=== PATIENT | male | born 1975 | race Caucasian/White ===

== ENCOUNTER 2022-09-01 04:35 | Inpatient (IN) ==
[2022-09-01] MEDS ORDERED: SODIUM CHLORIDE 0.9% 1000ML 1,000 ML IV ONE (05:06)
[2022-09-01] MEDS ORDERED: HYDROmorphone INJ 1 MG/ML SYRINGE IV STA (05:06)
[2022-09-01] MEDS ORDERED: ONDANSETRON INJ 2 MG/ML 2 ML VIAL IV STA (05:06)
[2022-09-01 05:15] LABS: Basophils # (auto) 0.03 K/uL (0-0.2); Basophils % (auto) 0.3 %; Eosinophils % (auto) 4.4 %; Hematocrit (blood only) 45.7 % (42.0-52.0); Hemoglobin 16.8 g/dl (14.0-18.0); Immature Granulocytes # (auto) 0.11 K/uL (0.01-0.20); Lymphocytes # (auto) 1.29 K/uL (1.2-3.4); Lymphocytes % (auto) 11.4 %; Mean Corpuscular Hemoglobin 31.9 pg (25.0-34.0); Mean Corpuscular Hgb Conc 36.8 g/dL (32.0-36.0); Mean Corpuscular Volume 86.7 fL (80.0-100.0); Mean Platelet Volume 11.7 fL (9.4-12.4); Monocytes # (auto) 0.56 K/uL (0.11-0.59); Monocytes % (auto) 4.9 %; Neutrophils # (auto) 8.83 K/uL (1.40-6.50); Platelet Count 205 K/uL (130-400); RDW Coefficient of Variation 11.6 % (11.5-14.5); RDW Standard Deviation 36.8 fL (36.4-46.3); Red Blood Count 5.27 M/uL (4.70-6.10); White Blood Count 11.32 K/ul (4.8-10.8)
--- NOTE | 2022-09-01 05:27 | Emergency Department Note ---
Impression & Plan Partial small bowel obstruction Admit to the [facility] ED Provider Note NAME: DALE MENA AGE: 47 SEX: M ARRIVES VIA: Walk-In INFORMANT: Patient and his ED PROVIDER(S): Nicolle Clark DO CHIEF COMPLAINT: Midline abdominal pain PLAN: Disposition: Admit to the [facility] Condition: Fair MEDICAL DECISION MAKING: This is a 47-year-old male patient presents to the emergency department with abdominal pain nausea, vomiting and diarrhea. The patient has been seen at [facility] twice over the past 2 weeks for similar symptoms. However tonight, the pain was severe. At 1 AM his symptoms worsened and he noted he was burping up a foul smelling substance. Laboratory studies revealed a mild elevation to his white blood cell count. He had a stable H&H. BSG was 132. Patient was given IV antiemetics and IV analgesia. He was started on a normal saline drip and kept NPO. He went for CT scan of the abdomen/pelvis which revealed gastric air-fluid levels along with air-fluid levels in the small bowel consistent with a partial small bowel obstruction. Patient has a virgin abdomen with no previous intra-abdominal surgeries. NG tube was placed. I discussed the case with the [facility] and they will evaluate for further management. Triage Nursing notes reviewed and agree with them. Additional history obtained from the patient's is at the bedside Vital Signs: reviewed and remarkable for hypertension Differential diagnosis: Colitis, cholecystitis, small bowel obstruction, volvulus, pancreatitis ER treatment provided: Cardiac monitoring Twelve-lead EKG IV normal saline bolus IV Zofran IV Dilaudid NG tube placement Diagnostics interpreted by me: ECG: Normal sinus rhythm at a rate of [address] segment elevation or signs of ischemia. Cardiac Monitoring: Normal sinus rhythm at a rate of 89 Laboratory studies: See below Imaging studies: As per stat rad CT scan of the abdomen/pelvis: See report HPI: 47/M arrives for evaluation of diffuse abdominal pain, nausea, vomiting and diarrhea. Patient has been having intermittent episodes of nausea, vomiting diarrhea and abdominal pain. At 1 AM, the patient woke up with more severe pain. He did eat a double cheeseburger earlier today and some chili this evening. He had pancakes this for breakfast PAST MEDICAL HISTORY:Hypertension PAST SURGICAL HISTORY:Knee surgery FAMILY HISTORY:See Below SOCIAL HISTORY:The patient is employed; he lives with his and son. HOME MEDICATIONS:See list ALLERGIES:Amoxicillin VITALS:See Below PHYSICAL EXAMINATION: HEENT: Head - normocephalic and atraumatic. Pupils are equal, round, and react melody to light. Extraocular eye muscles are intact and sclera are anicteric. Ears - bilaterally patent canals with noninjected tympanic membranes and no evidence of hemotympanum. Nose - moist nasal mucosa without discharge. Mouth - moist buccal mucosa. Oropharynx is nonerythematous and there is no tonsillar exudate or edema noted. Neck: Supple; no cervical lymphadenopathy Heart: Regular rate and rhythm. There is a normal S1 and S2 with no murmurs, clicks, or gallops appreciated. Lungs: Clear to auscultation bilaterally with no wheezes, rales, or rhonchi. Abdomen: Soft, diffusely tender in the midline, nondistended, with good bowel sounds. There are no palpable pulsatile masses or hepatosplenomegaly. There is no guarding, rigidity, or rebound noted. Extremities: No evidence of cyanosis, clubbing, or edema. There are easily palpable peripheral pulses. Neuro:The patient is awake and alert, oriented to day, time, and place. Muscle strength is 5/5 in all 4 extremities. 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 There are no cerebellar signs. ED COURSE: Times/Reassessments: 445: The patient was evaluated in room C10. A complete history and physical was performed. An IV lock was initiated and labs were drawn as above. An order was placed for continuous cardiac monitoring. The patient was in a normal sinus rhythm at a rate of 89. A twelve-lead EKG was obtained as described above. The patient was bolused with IV normal saline solution. He was given a dose of IV Dilaudid and IV Zofran. The patient went for CT scan of the abdomen/pelvis. Upon return from radiology, the patient was able to give a urine specimen. He had a nasogastric tube placed. Nicolle Clark DO Past Med/Surg History Social History Smoking Status: Never smoker Preferred Language: Niuean Feels Safe at Home: Yes Results & Data (ED) Vital Signs Vital Signs - 24 hr 09/01/22 04:37 09/01/22 05:26 09/01/22 06:28 Temperature 36.3 C L Temperature Source Temporal Artery Scan Pulse Rate 89 78 74 Pulse Rhythm Regular Respiratory Rate 18 78 H Respiratory Effort / Characteristics Non-Labored Spontaneous Respiratory Depth Normal Respiratory Pattern Regular Blood Pressure 188/125 H Blood Pressure Mean 146 Blood Pressure Position Sitting Pulse Oximetry 96 98 Oxygen Delivery Method Room Air Room Air Sepsis Recent Fever Within 48 Hours No Sepsis New/Unexplained Change in Mental Status No Sepsis Action Taken by Nursing No Action Required Laboratory Data 09/01/22 04:50 09/01/22 04:50 Lab Results 09/01/22 09/01/22 09/01/22 Range/Units 04:50 04:50 06:23 WBC 11.32 H (4.8-10.8) K/ul RBC 5.27 (4.70-6.10) M/uL Hgb 16.8 (14.0-18.0) g/dl Hct 45.7 (42.0-52.0) % MCV 86.7 (80.0-100.0) fL MCH 31.9 (25.0-34.0) pg MCHC 36.8 H (32.0-36.0) g/dL RDW Std Deviation 36.8 (36.4-46.3) fL RDW Coeff of Bal 11.6 (11.5-14.5) % Plt Count 205 (130-400) K/uL MPV 11.7 (9.4-12.4) fL Immature Gran % (Auto) 1.0 % Neut % (Auto) 78.0 % Lymph % (Auto) 11.4 % Darke % (Auto) 4.9 % Eos % (Auto) 4.4 % Baso % (Auto) 0.3 % Neut # (Auto) 8.83 H (1.40-6.50) K/uL Lymph # (Auto) 1.29 (1.2-3.4) K/uL Darke # (Auto) 0.56 (0.11-0.59) K/uL Eos # (Auto) 0.50 (0-0.50) K/uL Baso # (Auto) 0.03 (0-0.2) K/uL Immature Gran # (Auto) 0.11 (0.01-0.20) K/uL Sodium 139 (136-145) mmol/L Potassium 3.8 (3.5-5.1) mmol/L Chloride 106 (98-107) mmol/L Carbon Dioxide 24 (21-32) mmol/L Anion Gap 9 (3-11) BUN 17 (6-23) mg/dl Creatinine 1.11 (0.6-1.4) mg/dl Est Cr Clr Drug Dosing 110.1 ml/min Est GFR ( Amer) 90.5 ml/min Est GFR (Non-Af Amer) 78.1 ml/min BUN/Creatinine Ratio 15.3 (10-20) Glucose 132 H (70-99(Fasting)) mg/dl Calcium 8.7 (8.5-10.1) mg/dl Total Bilirubin 0.9 (0.2-1.0) mg/dl AST 23 (13-39) U/L ALT 30 (7-52) U/L Alkaline Phosphatase 56 (34-104) U/L Total Protein 7.1 (6.0-8.3) gm/dl Albumin 4.5 (3.4-5.0) gm/dl Globulin 2.6 (2.5-4.0) gm/dl Albumin/Globulin Ratio 1.7 (0.9-2) Lipase 33 (11-82) U/L Urine Color Yellow Urine Appearance Clear (Clear) Urine pH 6.5 (4.5-7.5) Ur Specific [place] > 1.045 H (1.000-1.030) Urine Protein Negative (Negative) Urine Glucose (UA) Negative (Negative) Urine Ketones Negative (Negative) Urine Blood Negative (Negative) Urine Nitrite Negative (Negative) Urine Bilirubin Negative (Negative) Urine Urobilinogen Negative (Negative) Ur Leukocyte Esterase Negative (Negative) SARS-CoV-2, RNA, NAAT (NEGATIVE) 09/01/22 Range/Units 06:36 WBC (4.8-10.8) K/ul RBC (4.70-6.10) M/uL Hgb (14.0-18.0) g/dl Hct (42.0-52.0) % MCV (80.0-100.0) fL MCH (25.0-34.0) pg MCHC (32.0-36.0) g/dL RDW Std Deviation (36.4-46.3) fL RDW Coeff of Bal (11.5-14.5) % Plt Count (130-400) K/uL MPV (9.4-12.4) fL Immature Gran % (Auto) % Neut % (Auto) % Lymph % (Auto) % Darke % (Auto) % Eos % (Auto) % Baso % (Auto) % Neut # (Auto) (1.40-6.50) K/uL Lymph # (Auto) (1.2-3.4) K/uL Darke # (Auto) (0.11-0.59) K/uL Eos # (Auto) (0-0.50) K/uL Baso # (Auto) (0-0.2) K/uL Immature Gran # (Auto) (0.01-0.20) K/uL Sodium (136-145) mmol/L Potassium (3.5-5.1) mmol/L Chloride (98-107) mmol/L Carbon Dioxide (21-32) mmol/L Anion Gap (3-11) BUN (6-23) mg/dl Creatinine (0.6-1.4) mg/dl Est Cr Clr Drug Dosing ml/min Est GFR ( Amer) ml/min Est GFR (Non-Af Amer) ml/min BUN/Creatinine Ratio (10-20) Glucose (70-99(Fasting)) mg/dl Calcium (8.5-10.1) mg/dl Total Bilirubin (0.2-1.0) mg/dl AST (13-39) U/L ALT (7-52) U/L Alkaline Phosphatase (34-104) U/L Total Protein (6.0-8.3) gm/dl Albumin (3.4-5.0) gm/dl Globulin (2.5-4.0) gm/dl Albumin/Globulin Ratio (0.9-2) Lipase (11-82) U/L Urine Color Urine Appearance (Clear) Urine pH (4.5-7.5) Ur Specific [place] (1.000-1.030) Urine Protein (Negative) Urine Glucose (UA) (Negative) Urine Ketones (Negative) Urine Blood (Negative) Urine Nitrite (Negative) Urine Bilirubin (Negative) Urine Urobilinogen (Negative) Ur Leukocyte Esterase (Negative) SARS-CoV-2, RNA, NAAT NEGATIVE (NEGATIVE) Administered Medications Discontinued Medications Hydromorphone HCl (Hydromorphone Inj 1 Mg/Ml Syringe) 1 mg IV NOW STA Stop: 09/01/22 05:07 Last Admin: 09/01/22 05:14 Dose: 1 mg Documented By: JENNY Sodium Chloride (Nss 1000ml) 1,000 mls @ 999 mls/hr IV .Q1H1M ONE Stop: 09/01/22 06:06 Last Admin: 09/01/22 05:14 Dose: 999 mls/hr Documented By: JENNY Ioversol (Optiray 350 100ml) 100 ml IV ONCE ONE Stop: 09/01/22 05:33 Last Admin: 09/01/22 05:32 Dose: 85 ml Documented By: TINY Ondansetron HCl (Ondansetron Inj 2 Mg/Ml 2 Ml Vial) 4 mg IV NOW STA Stop: 09/01/22 05:07 Last Admin: 09/01/22 05:14 Dose: 4 mg Documented By: JENNY Imaging Data Radiologist's Impression: Abdomen/Pelvis CT 09/01/22 05:06 Exam(s): CT ABDOMEN + PELVIS With Contrast IV Amt: 85 ML OPTIRAY 350 EXAM: CT Abdomen and Pelvis With Intravenous Contrast CLINICAL HISTORY: Reason for exam: severe periumbilical pain. TECHNIQUE: Axial computed tomography images of the abdomen and pelvis with intravenous contrast. CTDI is 27.08 mGy and DLP is 1641.32 mGy-cm. Automated exposure control was utilized for the study. A dose lowering technique was utilized adhering to the principles of ALARA. CONTRAST: Patient received 85 ML OPTIRAY 350 of IV contrast COMPARISON: No relevant prior studies available. FINDINGS: Lung bases: Unremarkable. No mass. No consolidation. ABDOMEN: Liver: Hepatic steatosis. Gallbladder and bile ducts: Unremarkable. No calcified stones. No ductal dilation. Pancreas: Unremarkable. No mass. No ductal dilation. Spleen: Unremarkable. No splenomegaly. Adrenals: Unremarkable. No mass. Kidneys and ureters: Unremarkable. No solid mass. No hydronephrosis. Stomach and bowel: Mildly prominent fluid-filled small bowel loops. These generally measure less than 3 cm in diameter. There is no clear one transition point. No obstruction. No mucosal thickening. PELVIS: Appendix: No findings to suggest acute appendicitis. Bladder: Unremarkable. No mass. Reproductive: Unremarkable as visualized. ABDOMEN and PELVIS: Intraperitoneal space: Unremarkable. No free air. No significant fluid collection. Bones/joints: No acute fracture. No dislocation. Soft tissues: Unremarkable. Vasculature: Unremarkable. No abdominal aortic aneurysm. Lymph nodes: Unremarkable. No enlarged lymph nodes. IMPRESSION: Mildly prominent fluid-filled small bowel loops. These generally measure less than 3 cm in diameter. There is no clear one transition point. This may represent early or partial small bowel obstruction. The appendix is normal. Hepatic steatosis. Electronically signed by: Mk Dalal MD 09/01/22 06:04 AM KUB X-Ray 09/01/22 06:42 KUB CLINICAL HISTORY: Enteric tube placement. FINDINGS: 2 AP, portable, upright views of the lower chest and upper abdomen are correlated with abdominal CT performed the same day 09/01/2022. An enteric tube has been placed. This projects below diaphragm over the distal stomach. The tip is not visualized. The visualized loops of bowel in the upper abdomen are normal in caliber. No evidence of intraperitoneal free air is seen below the diaphragm. The heart is enlarged. Atelectasis is noted at the lung bases. The visualized skeletal structures appear intact. IMPRESSION: An enteric tube has been placed as above. Electronically signed by: Nadir Calvin M.D. 09/01/2022 7:11 AM Discharge Plan Visit Data Chief Complaint: Abdominal Pain Stated Complaint: SEVERE ABDOMINAL PAIN,DRY HEAVES ED Provider: Nicolle Clark Discharge Problem: Partial small bowel obstruction Forms Stand Alone Forms: My [facility] Referrals Referrals: PCP,NO [Physician] -
[2022-09-01] MEDS ORDERED: OPTIRAY 350 100ml IV ONE (05:32)
[2022-09-01 05:33] LABS: Albumin Level 4.5 gm/dl (3.4-5.0); Bilirubin,Total 0.9 mg/dl (0.2-1.0); Calcium 8.7 mg/dl (8.5-10.1); Potassium 3.8 mmol/L (3.5-5.1)
[2022-09-01 05:40] LABS: Albumin Globulin Ratio 1.7 (0.9-2); BUN Creatinine Ratio 15.3 (10-20); Creatinine Clr Calc Pharmacy 110.1 ml/min; Est GFR (African American) 90.5 ml/min; Est GFR (Non-African American) 78.1 ml/min; Globulin 2.6 gm/dl (2.5-4.0); Total Protein 7.1 gm/dl (6.0-8.3)
--- NOTE | 2022-09-01 06:05 | CT Scan Report ---
Exam(s): CT ABDOMEN + PELVIS With Contrast IV Amt: 85 ML OPTIRAY 350 EXAM: CT Abdomen and Pelvis With Intravenous Contrast CLINICAL HISTORY: Reason for exam: severe periumbilical pain. TECHNIQUE: Axial computed tomography images of the abdomen and pelvis with intravenous contrast. CTDI is 27.08 mGy and DLP is 1641.32 mGy-cm. Automated exposure control was utilized for the study. A dose lowering technique was utilized adhering to the principles of ALARA. CONTRAST: Patient received 85 ML OPTIRAY 350 of IV contrast COMPARISON: No relevant prior studies available. FINDINGS: Lung bases: Unremarkable. No mass. No consolidation. ABDOMEN: Liver: Hepatic steatosis. Gallbladder and bile ducts: Unremarkable. No calcified stones. No ductal dilation. Pancreas: Unremarkable. No mass. No ductal dilation. Spleen: Unremarkable. No splenomegaly. Adrenals: Unremarkable. No mass. Kidneys and ureters: Unremarkable. No solid mass. No hydronephrosis. Stomach and bowel: Mildly prominent fluid-filled small bowel loops. These generally measure less than 3 cm in diameter. There is no clear one transition point. No obstruction. No mucosal thickening. PELVIS: Appendix: No findings to suggest acute appendicitis. Bladder: Unremarkable. No mass. Reproductive: Unremarkable as visualized. ABDOMEN and PELVIS: Intraperitoneal space: Unremarkable. No free air. No significant fluid collection. Bones/joints: No acute fracture. No dislocation. Soft tissues: Unremarkable. Vasculature: Unremarkable. No abdominal aortic aneurysm. Lymph nodes: Unremarkable. No enlarged lymph nodes. IMPRESSION: Mildly prominent fluid-filled small bowel loops. These generally measure less than 3 cm in diameter. There is no clear one transition point. This may represent early or partial small bowel obstruction. The appendix is normal. Hepatic steatosis. Electronically signed by: Mk Dalal MD 09/01/22 06:04 AM
[2022-09-01] MEDS ORDERED: BENZOCAINE/TETRACAIN/BUTAM 50 APPLN/5 GM CAN EXT STA (06:39)
[2022-09-01] MEDS ORDERED: BENZOCAINE/TETRACAIN/BUTAM 50 APPLN/5 GM CAN EXT ONE (06:44)
[2022-09-01 06:54] LABS: Appearance Urine Clear (Clear); Bilirubin Urine Negative (Negative); Blood Urine Negative (Negative); Color Urine Yellow; Glucose Urine UA Negative (Negative); Ketones Urine Negative (Negative); Leukocyte Esterase Urine Negative (Negative); Nitrite Urine Negative (Negative); Protein Urine Negative (Negative); Specific Gravity Urine > 1.045 (1.000-1.030); Urobilinogen Urine Negative (Negative); pH Urine 6.5 (4.5-7.5)
--- NOTE | 2022-09-01 07:14 | XRay Report ---
KUB CLINICAL HISTORY: Enteric tube placement. FINDINGS: 2 AP, portable, upright views of the lower chest and upper abdomen are correlated with abdo juliette CT performed the same day 09/01/2022. An enteric tube has been placed. This projects below diaph ragm over the distal stomach. The tip is not visualized. The visualized loops of bowel in the upper a bdomen are normal in caliber. No evidence of intraperitoneal free air is seen below the diaphragm. Th e heart is enlarged. Atelectasis is noted at the lung bases. The visualized skeletal structures appea r intact. IMPRESSION: An enteric tube has been placed as above. Electronically signed by: Nadir Calvin M.D. 09/01/2022 7:11 AM
[2022-09-01] MEDS: SODIUM CHLORIDE 0.9% 500 ML IV SCH ×2 (07:30→10:36)
--- NOTE | 2022-09-01 09:19 | History & Physical Report ---
Date of Service September 01, 2022 Assessment & Plan (1) Partial small bowel obstruction: Plan: 47 y/o male with a PMH of hypertension who presents with two weeks of episodic abdominal pain, most recent episode with associated dry heaves and diarrhea. Imaging in the ED today concerning for partial SBO but no transition point. No prior bowel obstructions, no prior abdominal surgery - Admit to med telemetry due to elevated BP - Consult surgery for additional recommendations - Continue NGT for now, NPO status - Check lactate - Labs in AM - Stool studies for infection - Morphine for pain control, ondansetron for nausea - Add IV Pepcid (2) Essential hypertension: Plan: Unable to take oral BP meds at present and BP markedly elevated in ED/on floor - IV hydralazine ordered prn - Will resume home meds once able to take po Plan Pt seen and reviewed with attending physician, Dr. Robles. Plan of care discussed and as outlined above. Code Status: Full Code DVT Prophylaxis: Timmy Najera PA-C Admission and Anticipated Discharge Date Admission Date: September 01, 2022 History of Present Illness Chief Complaint: abdominal pain, nausea Primary Care Provider: Alla Barron DO This is a 47 y/o male with a PMH of HTN and BPPV who presented to the ED overnight with recurrent abdominal pain and vomiting. Symptoms started 08/18/22 with abdominal pain - evaluated in the ED in [place] on 08/20/[address] negative so sent home. He did well for a few days without symptoms but then developed recurrent pain and was seen in the ED in [place] again on 08/28/22 (pain but no vomiting or diarrhea), CT again negative so sent home. Last night, he developed severe pain with associated dry heaves and nausea as well as diar naseem, which were new from prior episodes of symptoms. He denies overt hematochezia although stools were reddish in color so he is unsure if bloody. He came to [facility] for eval overnight - imaging here showed possible partial SBO so referred for admission. NGT placed in ED for decompression - pt reports improvement in pain after NGT placed. Main complaint at present is sore throat related to the tube. Prior to 08/18, pt denies any similar symptoms. No recent change in bowel habits, appetite, or weight loss. He denies prior abdominal surgeries, no prior SBO. He denies fevers, chills, chest pain, palpitations, SOB, SONI, Dizziness. He has a history of BP - on metoprolol and losartan but has not taken since yesterday. Allergies Allergy/AdvReac Type Severity Reaction Status Date / Time amoxicillin Allergy Rash Verified 09/01/22 09:13 Penicillins Allergy hives Verified 09/01/22 09:13 Home Medications Medication Instructions Recorded Confirmed Type losartan 100 mg tablet 100 mg PO DAILY 09/01/22 09/01/22 History metoprolol tartrate 25 mg tablet 25 mg PO BID 09/01/22 09/01/22 History Past Med/Surg History Medical History BPPV (benign paroxysmal positional vertigo) Essential hypertension Surgical History History of arthroscopy of left knee Family History Grandfather (Maternal) Heart disease Grandmother (Maternal) Heart disease Father Hypertension Social History Smoking Status: Never smoker Hx Alcohol Use: No Hx Substance Use: No Preferred Language: Portuguese Communication Ability: Effective Natural Fabricator Required: No Beliefs That Will Affect Care: None Current Living Situation: Spouse Feels Safe at Home: Yes Assistive Devices: Glasses Review of Systems Review of Systems: All systems reviewed & are unremarkable except as noted in HPI & below Constitutional: + anorexia; no fever and no chills Eyes: no diplopia Ear, Nose, Mouth, Throat: + sore throat Respiratory: no cough and no dyspnea Cardiovascular: no chest pain, no palpitations, no syncope and no edema Gastrointestinal: as per Subjective / HPI Genitourinary: no dysuria or no hematuria Musculoskeletal: no back pain and no neck pain Integumentary: no rash and no yellowing of the skin Neurologic: no dizziness and no headache(s) Physical Exam Constitutional: well developed and well nourished; no acute distress Eyes: + anicteric sclerae ENMT: NGT in place with reddish drainage Neck: trachea midline Respiratory: no respiratory distress and no labored breathing Auscultation: lungs clear to auscultation bilaterally; no rales, no rhonchi and no wheezes Cardiovascular: Rate/Rhythm: regular rate and regular rhythm Vessels: radial pulses present Extremities: no pedal edema Gastrointestinal (Abdomen): Inspection/Auscultation: + hypoactive bowel sounds; abdomen not distended Percussion/Palpation: + hernia (umbilical); abdomen nontender Musculoskeletal: Head/Neck/Chest: normocephalic, head atraumatic and neck supple Skin: no jaundice Neurologic: moves all extremities; no focal motor deficits and not confused Psychiatric: A+Ox3, euthymic affect Results & Data Results & Data ([facility]) Vital Signs (Past 12 Hours) Vital Signs Temp Pulse Resp BP Pulse Ox O2 Del Method 09/01/22 09:08 Room Air 09/01/22 07:59 176/115 H 09/01/22 07:59 84 94 09/01/22 07:30 87 12 90 09/01/22 07:01 85 21 93 09/01/22 06:30 77 16 91 09/01/22 06:25 87 24 90 09/01/22 06:24 168/121 H 09/01/22 06:28 74 09/01/22 05:26 78 78 H 98 Room Air 09/01/22 04:37 36.3 C L 89 18 188/125 H 96 Room Air Laboratory Results Laboratory Results - last 24 hr 09/01/22 09/01/22 09/01/22 04:50 04:50 06:23 WBC 11.32 H RBC 5.27 Hgb 16.8 Hct 45.7 MCV 86.7 MCH 31.9 MCHC 36.8 H RDW Std Deviation 36.8 RDW Coeff of Bal 11.6 Plt Count 205 MPV 11.7 Immature Gran % (Auto) 1.0 Neut % (Auto) 78.0 Lymph % (Auto) 11.4 Stafford % (Auto) 4.9 Eos % (Auto) 4.4 Baso % (Auto) 0.3 Neut # (Auto) 8.83 H Lymph # (Auto) 1.29 Stafford # (Auto) 0.56 Eos # (Auto) 0.50 Baso # (Auto) 0.03 Immature Gran # (Auto) 0.11 Sodium 139 Potassium 3.8 Chloride 106 Carbon Dioxide 24 Anion Gap 9 BUN 17 Creatinine 1.11 Est Cr Clr Drug Dosing 110.1 Est GFR ( Amer) 90.5 Est GFR (Non-Af Amer) 78.1 BUN/Creatinine Ratio 15.3 Glucose 132 H Calcium 8.7 Total Bilirubin 0.9 AST 23 ALT 30 Alkaline Phosphatase 56 Total Protein 7.1 Albumin 4.5 Globulin 2.6 Albumin/Globulin Ratio 1.7 Lipase 33 Urine Color Yellow Urine Appearance Clear Urine pH 6.5 Ur Specific Nelson > 1.045 H Urine Protein Negative Urine Glucose (UA) Negative Urine Ketones Negative Urine Blood Negative Urine Nitrite Negative Urine Bilirubin Negative Urine Urobilinogen Negative Ur Leukocyte Esterase Negative SARS-CoV-2, RNA, NAAT 09/01/22 06:36 WBC RBC Hgb Hct MCV MCH MCHC RDW Std Deviation RDW Coeff of Bal Plt Count MPV Immature Gran % (Auto) Neut % (Auto) Lymph % (Auto) Stafford % (Auto) Eos % (Auto) Baso % (Auto) Neut # (Auto) Lymph # (Auto) Stafford # (Auto) Eos # (Auto) Baso # (Auto) Immature Gran # (Auto) Sodium Potassium Chloride Carbon Dioxide Anion Gap BUN Creatinine Est Cr Clr Drug Dosing Est GFR ( Amer) Est GFR (Non-Af Amer) BUN/Creatinine Ratio Glucose Calcium Total Bilirubin AST ALT Alkaline Phosphatase Total Protein Albumin Globulin Albumin/Globulin Ratio Lipase Urine Color Urine Appearance Urine pH Ur Specific Nelson Urine Protein Urine Glucose (UA) Urine Ketones Urine Blood Urine Nitrite Urine Bilirubin Urine Urobilinogen Ur Leukocyte Esterase SARS-CoV-2, RNA, NAAT NEGATIVE Diagnostic Findings CT Abd/Pel 09/01/22 - IMPRESSION: Mildly prominent fluid-filled small bowel loops. These generally measure less than 3 cm in diameter. There is no clear one transition point.This may represent early or partial small bowel obstruction. The appendix is normal. Hepatic steatosis. Medications Administered Sodium Chloride (Nss) 500 mls @ 125 mls/hr IV .Q4H RADHA Stop: 10/01/22 06:14 Last Admin: 09/01/22 07:30 Dose: 125 mls/hr Documented By: RUBEN Discontinued Medications Hydromorphone HCl (Hydromorphone Inj 1 Mg/Ml Syringe) 1 mg IV NOW STA Stop: 09/01/22 05:07 Last Admin: 09/01/22 05:14 Dose: 1 mg Documented By: JENNY Sodium Chloride (Nss 1000ml) 1,000 mls @ 999 mls/hr IV .Q1H1M ONE Stop: 09/01/22 06:06 Last Infusion: 09/01/22 07:00 Dose: 0 mls/hr Documented By: Admin: 09/01/22 05:14 Dose: 999 mls/hr Documented By: JENNY Ioversol (Optiray 350 100ml) 100 ml IV ONCE ONE Stop: 09/01/22 05:33 Last Admin: 09/01/22 05:32 Dose: 85 ml Documented By: TINY Ondansetron HCl (Ondansetron Inj 2 Mg/Ml 2 Ml Vial) 4 mg IV NOW STA Stop: 09/01/22 05:07 Last Admin: 09/01/22 05:14 Dose: 4 mg Documented By: JENNY Code Status & VTE Plan VTE Prophylaxis Plan VTE Prophylaxis will be ordered: Yes Supervising Physician Co-Signing Physician Notes Patient is a 47-year-old male with history of hypertension, obesity and other medical problems presents with history of abdominal pain, nausea, vomiting, diarrhea which woke him up from sleep this morning. Patient had similar episodes few weeks ago. Please review HPI for complete details of presentation. Patient was found to have hypertensive urgency while in ED. He admits to missing his home antihypertensive medications. Blood work showed leukocytosis 11.32 K, glucose 132, lactic acid 2.5, otherwise within normal limits. Urine analysis normal. Stool studies negative. COVID screen negative. CT abdomen showed mildly prominent fluid-filled small bowel loops, no clear transition point, findings suggestive of possible partial small bowel obstruction.NG tube placed in ED. EKG showed normal sinus rhythm, left axis deviation, QTc 465. On exam patient is obese, no apparent distress, normocephalic, atraumatic, EOMI,+ NG tube, normal breath sounds, clear to auscultation, S1-S2, no murmur, no peripheral edema, abdomen soft,+ umbilical hernia, decreased bowel sounds, nontender, alert, awake, oriented, grossly no focal deficits. Patient is admitted for management of partial small bowel obstruction, hypertensive urgency. Conservative management with n.p.o., NG tube, IV fluids, pain control. Appreciate surgery input. IV hydralazine as needed from blood pressure control. Plan for small bowel follow-through tomorrow. I personally reviewed the record. Patient is interviewed and examined at bedside. Patient's care is coordinated with Maddie Najera PA-C. Please refer to the documentation above for details of patient's presentation and for discussion of other issues.
[2022-09-01] MEDS ORDERED: hydrALAZINE HCL 20 MG/ML VIAL IV PRN (09:36)
[2022-09-01] MEDS ORDERED: MoRPHine SULFATE 2 MG/ML CARP IV PRN (09:36)
[2022-09-01] MEDS ORDERED: FAMOTIDINE 20 MG in SYRINGE 3 ML IV PRN (09:36)
[2022-09-01] MEDS ORDERED: BENZOCAINE/TETRACAIN/BUTAM 50 APPLN/5 GM CAN EXT PRN (10:09)
[2022-09-01] MEDS: SODIUM CHLORIDE 0.9% 1,000 ML IV SCH ×2 (10:41→23:04)
--- NOTE | 2022-09-01 10:49 | Surgery Consultation ---
Date of Consultation September 01, 2022 Assessment & Plan (1) Partial small bowel obstruction: CT images and results were personally viewed by myself, no clear signs of small bowel obstruction NG tube already been placed, would recommend this for today for decompression His symptoms are more chronic in nature and I do think an oral contrast study while he is here is prudent due to him having 3 noncontrasted CTs in the past 2 weeks We will order small bowel follow-through for tomorrow morning Also order stool studies due to his diarrhea and GI complaints If his small bowel follow-through is normal, we can remove his NG tube and initiate a diet I do think that he should follow-up with gastroenterology as an outpatient if we can get him through this without any surgical intervention We will follow History of Present Illness Reason for Consultation: Partial small bowel obstruction Attending Physician: Farrukh Robles MD History of Present Illness This is a 47-year-old male who presented to the ER early this morning with generalized abdominal pain that woke him up from sleep this morning. He states he had 2 further episodes previously 1 at the end of July and 1 last for which he went to the [facility] and had CT scan of the abdomen pelvis without p.o. contrast that were negative for any pathology. He again started with abdominal pain this morning, sharp in nature generalized with some nausea as well. He states he had no emesis. He had a normal bowel movement this morning as well as some diarrhea since he has been here. He denies any change in his diet. He has never had abdominal surgery. He has never had a colonoscopy. No family history of colon cancer. Allergies Allergy/AdvReac Type Severity Reaction Status Date / Time amoxicillin Allergy Rash Verified 09/01/22 09:13 Penicillins Allergy hives Verified 09/01/22 09:13 Home Medications Medication Instructions Recorded Confirmed Type losartan 100 mg tablet 100 mg PO DAILY 09/01/22 09/01/22 History metoprolol tartrate 25 mg tablet 25 mg PO BID 09/01/22 09/01/22 History Patient History Medical History BPPV (benign paroxysmal positional vertigo) Essential hypertension Surgical History History of arthroscopy of left knee Family History Grandfather (Maternal) Heart disease Grandmother (Maternal) Heart disease Father Hypertension Social History Smoking Status: Never smoker Hx Alcohol Use: No Hx Substance Use: No Preferred Language: Eritrean Communication Ability: Effective Residential Property Manager Required: No Beliefs That Will Affect Care: None Current Living Situation: Spouse Feels Safe at Home: Yes Assistive Devices: Glasses Review of Systems Constitutional: no fever and no chills Eyes: no worsening vision Ear, Nose, Mouth, Throat: no ear pain and no hearing loss Respiratory: no cough and no dyspnea Cardiovascular: no chest pain and no dyspnea on exertion Gastrointestinal: + abdominal pain, + bloating, + nausea and + diarrhea/loose stools; no vomiting Genitourinary: no dysuria Musculoskeletal: no back pain and no neck pain Integumentary: no acne, no rash and no skin ulcer Neurologic: no headache(s) Psychiatric: no behavioral changes and no depression Hematologic / Lymphatic: no easy bleeding and no easy bruising Physical Exam Constitutional: WD/WN, vitals as above Eyes: PERRL, conjunctivae normal, anicteric sclerae ENMT: external ear and nose normal, oropharynx normal Neck: trachea midline, no thyromegaly Respiratory: normal respiratory effort, lungs clear to auscultation Cardiovascular: RRR, no murmur, no edema Gastrointestinal (Abdomen): Inspection/Auscultation: abdomen normal to inspection; abdomen not distended Percussion/Palpation: abdomen soft and + hernia (Reducible fat filled umbilical); abdomen nontender and no guarding Musculoskeletal: no cyanosis or clubbing, extremities motor strength 5/5 Skin: no rashes, warm and dry Neurologic: PERRL, EOMI, accommodation nl, no face palsy, no dysarthria Psychiatric: A+Ox3, euthymic affect Results & Data ([facility]) Vital Signs (Past 12 Hours) Vital Signs Temp Pulse Pulse Resp BP BP Pulse Ox 09/01/22 09:50 09/01/22 09:41 36.5 C 79 16 170/100 H 95 09/01/22 09:08 09/01/22 07:59 176/115 H 09/01/22 07:59 84 94 09/01/22 07:30 87 12 90 09/01/22 07:01 85 21 93 09/01/22 06:30 77 16 91 09/01/22 06:25 87 24 90 09/01/22 06:24 168/121 H 09/01/22 06:28 74 09/01/22 05:26 78 78 H 98 09/01/22 04:37 36.3 C L 89 18 188/125 H 96 O2 Del Method 09/01/22 09:50 Room Air 09/01/22 09:41 Room Air 09/01/22 09:08 Room Air 09/01/22 07:59 09/01/22 07:59 09/01/22 07:30 09/01/22 07:01 09/01/22 06:30 09/01/22 06:25 09/01/22 06:24 09/01/22 06:28 09/01/22 05:26 Room Air 09/01/22 04:37 Room Air Diagnostic Findings CT abdomen pelvis 09/01/2022 IMPRESSION: Mildly prominent fluid-filled small bowel loops. These generally measure less than 3 cm in diameter. There is no clear one transition point. This may represent early or partial small bowel obstruction. The appendix is normal. Hepatic steatosis. PG Care Time/CCT Total # of Minutes Spent Total Time Spent with Patient: Total time spent is greater than 50% in coordination of care (as documented) at patient's floor/unit and/or counseling patient: Coding Level of Care Code 82282 IN/OBS CONSULT LVL 5,80M Diagnoses Partial small bowel obstruction K56.600
[2022-09-01 13:07] LABS: Adenovirus F 40/41 PCR Not Detected (NotDetected); Astrovirus PCR Not Detected (NotDetected); Campylobacter PCR Not Detected (NotDetected); Cryptosporidium PCR Not Detected (NotDetected); Cyclospora cayetanensis PCR Not Detected (NotDetected); Entamoeba histolytica PCR Not Detected (NotDetected); Enteroaggregative E.coli(EAEC) Not Detected (NotDetected); Enteropathogenic E.coli (EPEC) Not Detected (NotDetected); Enterotoxigenic E.coli (ETEC) Not Detected (NotDetected); Giardia lamblia PCR Not Detected (NotDetected); Norovirus GI/GII PCR Not Detected (NotDetected); Plesiomonas shigelloides PCR Not Detected (NotDetected); Rotavirus A PCR Not Detected (NotDetected); Salmonella PCR Not Detected (NotDetected); Sapovirus PCR Not Detected (NotDetected); Shiga-like Toxin E.coli (STEC) Not Detected (NotDetected); Shigella/Enteroinvasive E.coli Not Detected (NotDetected); Vibrio cholerae PCR Not Detected (NotDetected); Vibrio species PCR Not Detected (NotDetected); Yersinia enterocolitica PCR Not Detected (NotDetected)
[2022-09-01] MEDS ORDERED: LIDOCAINE 4% INH SOLN 4 ML BTL TOP PRN (15:01)
[2022-09-01] MEDS ORDERED: LABETALOL HCL IV 5 MG/ML 20ML IV PRN (16:05)
[2022-09-01] MEDS: ONDANSETRON INJ 2 MG/ML 2 ML VIAL IV PRN (18:14)
[2022-09-01] MEDS ORDERED: hydrALAZINE HCL 20 MG/ML VIAL IV ONE (18:48)
--- NOTE | 2022-09-01 19:03 | XRay Report ---
KUB HISTORY: NG tube adjustment COMPARISON: KUB 09/01/2022. FINDINGS: The bowel gas pattern is unremarkable. There are no dilated loops of small bowel to suggest an obstruction. No renal calculi. No ureteral calculi. No pneumoperitoneum or pneumatosis. Nasogast tariq tube terminates in the mid to distal stomach. IMPRESSION: The nasogastric tube terminates in the stomach. ACT 112: Negative or not required by law. Electronically signed by: Ata Nunez M.D. 09/01/2022 7:02 PM
[2022-09-01] MEDS ORDERED: ACETAMINOPHEN 1,000 MG/100 ML VIAL IV PRN (22:33)
[2022-09-01] MEDS ORDERED: ACETAMINOPHEN 1,000 MG/100 ML VIAL IV STA (22:33)
--- NOTE | 2022-09-01 23:56 | Ultrasound Report ---
Exam(s): US VENOUS LEFT UPPER EXTREMITY EXAM: US Duplex Left Upper Extremity Veins CLINICAL HISTORY: Reason for exam: swelling. TECHNIQUE: Real-time duplex ultrasound scan of the left upper extremity veins integrating B-mode two-dimensional vascular structure, Doppler spectral analysis, color flow Doppler imaging and compression. COMPARISON: No relevant prior studies available. FINDINGS: Deep veins: Unremarkable. No DVT in the internal jugular, subclavian, axillary, or brachial veins. The veins demonstrate normal color flow, are normally compressible, with normal phasic flow and/or augmentation response. Superficial veins: Unremarkable. No thrombus in the visualized basilic and cephalic veins. Soft tissues: No acute findings. IMPRESSION: Normal left upper extremity duplex venous ultrasound. Electronically signed by: Faisal Brown MD 09/01/22 23:54 PM
[2022-09-02] MEDS ORDERED: SODIUM CHLORIDE 0.65% NA SOLN 45 ML (OCEAN) PRN (01:27)
[2022-09-02] MEDS: ONDANSETRON INJ 2 MG/ML 2 ML VIAL IV PRN (03:24)
--- NOTE | 2022-09-02 05:50 | Electrocardiogram Report ---
Test Reason : Blood Pressure : / mmHG Vent. Rate : 078 BPM Atrial Rate : 078 BPM P-R Int : 144 ms QRS Dur : 120 ms QT Int : 408 ms P-R-T Axes : 119 -31 -10 degrees QTc Int : 465 ms Normal sinus rhythm Left axis deviation Left ventricular hypertrophy with QRS widening Abnormal ECG No previous ECGs available Confirmed by Roland Arriaga ([id number]) on 09/02/2022 5:50:13 AM Referred By: REFERRED SELF Confirmed By:Roland Arriaga
[2022-09-02 08:10] LABS: Hematocrit (blood only) 42.6 % (42.0-52.0); Hemoglobin 15.3 g/dl (14.0-18.0); Mean Corpuscular Hemoglobin 31.7 pg (25.0-34.0); Mean Corpuscular Hgb Conc 35.9 g/dL (32.0-36.0); Mean Corpuscular Volume 88.4 fL (80.0-100.0); Mean Platelet Volume 11.3 fL (9.4-12.4); Platelet Count 179 K/uL (130-400); RDW Coefficient of Variation 11.9 % (11.5-14.5); RDW Standard Deviation 38.4 fL (36.4-46.3); Red Blood Count 4.82 M/uL (4.70-6.10); White Blood Count 9.69 K/ul (4.8-10.8)
[2022-09-02 08:16] LABS: Estimated Average Glucose 105 mg/dl; Hemoglobin A1C 5.3 % (4.5-5.6)
[2022-09-02 08:35] LABS: BUN Creatinine Ratio 16.7 (10-20); Calcium 8.2 mg/dl (8.5-10.1); Creatinine Clr Calc Pharmacy 111.9 ml/min; Est GFR (African American) 93.6 ml/min; Est GFR (Non-African American) 80.7 ml/min; Magnesium 1.8 mg/dl (1.7-2.4); Potassium 3.5 mmol/L (3.5-5.1)
--- NOTE | 2022-09-02 09:23 | Fluoroscopy Report ---
FL small bowel follow through CLINICAL HISTORY: Small bowel obstruction. Abnormal CT. Follow-up. COMPARISON STUDY: Abdomen and pelvis CT 09/01/2022. FINDINGS: 5 overhead images of the abdomen were obtained. No fluoroscopic spot images were obtained. A total of 600 cc of a one-to-one mixture of Optiray 350 and water were injected through the indwelli ng nasogastric tube. Supply And Distribution Manager images demonstrate the nasogastric tube at the mid stomach. No dilated loo ps of small bowel identified. The small bowel is normal and course and caliber. The terminal ileum ap peared normally distensible. No evidence for small bowel obstruction. Contrast reached the colon by 3 0 minutes. IMPRESSION: No evidence for a small bowel obstruction. ACT 112: Negative or not required by law. Electronically signed by: Ata Nunez M.D. 09/02/2022 9:21 AM
--- NOTE | 2022-09-02 09:44 | Surgery Progress Note ---
Date of Service September 02, 2022 Assessment & Plan (1) Partial small bowel obstruction: Plan: Small bowel follow-through images and results personally viewed by myself, no evidence for obstruction Remove NG tube, advance diet as tolerated I think outpatient GI work-up for his repeated abdominal pain would be the best course of action once he is discharged Surgery will sign off at this time, please call with any questions or concerns Admission and Anticipated Discharge Date Admission Date: September 01, 2022 Subjective Patient seen and examined. No abdominal pain. No fevers or chills. Review of Systems Constitutional: no fever and no chills Physical Exam Constitutional: WD/WN, vitals as above Gastrointestinal (Abdomen): Inspection/Auscultation: abdomen normal to inspection; abdomen not distended Percussion/Palpation: abdomen soft and + hernia (Reducible umbilical); abdomen nontender and no guarding Results & Data ([facility]) Vital Signs (Past 12 Hours) Vital Signs Temp Pulse Pulse Resp BP BP Pulse Ox 09/02/22 07:56 95 H 09/02/22 07:17 36.7 C 87 17 166/101 H 96 09/02/22 03:23 36.8 C 99 H 18 160/62 H 93 09/02/22 00:18 36.9 C 95 H 18 148/86 H 94 09/01/22 23:33 109 H O2 Del Method 09/02/22 07:56 09/02/22 07:17 Room Air 09/02/22 03:23 Room Air 09/02/22 00:18 Room Air 09/01/22 23:33 Diagnostic Findings [place] small bowel follow through CLINICAL HISTORY: Small bowel obstruction. Abnormal CT. Follow-up. COMPARISON STUDY: Abdomen and pelvis CT 09/01/2022. FINDINGS: 5 overhead images of the abdomen were obtained. No fluoroscopic spot images were obtained. A total of 600 cc of a one-to-one mixture of Optiray 350 and water were injected through the indwelling nasogastric tube. [employer] images demonstrate the nasogastric tube at the mid stomach. No dilated loops of small bowel identified. The small bowel is normal and course and caliber. The terminal ileum appeared normally distensible. No evidence for small bowel obstruction. Contrast reached the colon by 30 minutes. IMPRESSION: No evidence for a small bowel obstruction. PG Care Time/CCT Total # of Minutes Spent Total Time Spent with Patient: Total time spent is greater than 50% in coordination of care (as documented) at patient's floor/unit and/or counseling patient: Coding Level of Care Code 72586 SUB INP/OBS CARE 07/16MIN Diagnoses Partial small bowel obstruction K56.600
[2022-09-02] MEDS ORDERED: METOPROLOL TARTRATE 25 MG TAB PO SCH (10:30)
[2022-09-02] MEDS ORDERED: LOSARTAN POTASSIUM 50 MG TAB PO SCH (10:30)
[2022-09-02] MEDS ORDERED: DOCUSATE SODIUM 100 MG CAP PO PRN (10:31)
--- NOTE | 2022-09-02 12:35 | Hospitalist Progress Note ---
Date of Service September 02, 2022 Assessment & Plan (1) Partial small bowel obstruction: Plan: Patient is a 47 yr male with a PMH of hypertension who presents with two weeks of episodic abdominal pain, most recent episode with associated dry heaves and diarrhea. Imaging in the ED today concerning for partial SBO but no transition point. No prior bowel obstructions, no prior abdominal surgery Partial small bowel obstruction --CT ABD:Mildly prominent fluid-filled small bowel loops. These generally measure less than 3 cm in diameter. There is no clear one transition point.This may represent early or partial small bowel obstruction.The appendix is normal. Hepatic steatosis. --Small Bowel follow through:No evidence for a small bowel obstruction. --Stool Studies:Negative -- NG tube discontinued Had bowel movement Advance diet as tolerated Appreciate surgery input Abdominal pain resolved Plan to discharge home if tolerates low fiber diet Advised to follow-up with GI as Outpatient (2) Essential hypertension: Plan: BP elevated Restart losartan, Metoprolol Hydralazine PRN Plan Code Status: Full Code DVT Prophylaxis: SCDs Encourage to ambulate Admission and Anticipated Discharge Date Admission Date: September 01, 2022 Subjective Patient is seen and examined at bedside Abdominal pain resolved NG tube discontinued Had bowel movement Denies any chest pain, dyspnea, dizziness, nausea No other complaints Tolerating clear liquid diet Review of Systems Review of Systems: All systems reviewed & are unremarkable except as noted in Subjective Physical Exam Physical Exam: Physical Exam: Vitals signs as noted above General Appearance:Obese, no apparent distress Head: normocephalic, Atraumatic Eyes: normal inspection, EOMI Neck: supple, Trachea midline Respiratory/Chest: Normal breath sounds, CTA, No accessory muscle use Cardiovascular: S1, S2, No murmur Abdomen/GI:Soft, Non tender, Bowel sounds present Extremities/Musculoskeletal:normal inspection, no edema Neurologic/Psych:AAOX3, grossly no focal neurological deficits Skin: normal color, warm Results & Data Results & Data ([facility]) Vital Signs (Past 12 Hours) Vital Signs Temp Pulse Pulse Resp BP BP Pulse Ox 09/02/22 11:17 36.8 C 86 18 153/85 H 96 09/02/22 07:56 95 H 09/02/22 07:17 36.7 C 87 17 166/101 H 96 09/02/22 03:23 36.8 C 99 H 18 160/62 H 93 O2 Del Method 09/02/22 11:17 Room Air 09/02/22 07:56 09/02/22 07:17 Room Air 09/02/22 03:23 Room Air Laboratory Results Short CBC 09/02/22 Range/Units 07:46 WBC 9.69 (4.8-10.8) K/ul Hgb 15.3 (14.0-18.0) g/dl Hct 42.6 (42.0-52.0) % Plt Count 179 (130-400) K/uL BMP 09/02/22 07:46 Sodium 141 Potassium 3.5 Chloride 106 Carbon Dioxide 27 BUN 18 Creatinine 1.08 Glucose 115 H Calcium 8.2 L
--- NOTE | 2022-09-02 12:47 | Discharge Summary ---
Date of Service September 02, 2022 Admission HPI Per Admitting Provider This is a 47 y/o male with a PMH of HTN and BPPV who presented to the ED overnight with recurrent abdominal pain and vomiting. Symptoms started 08/18/22 with abdominal pain - evaluated in the ED in [place] on 08/20/[address] negative so sent home. He did well for a few days without symptoms but then developed recurrent pain and was seen in the ED in [place] again on 08/28/22 (pain but no vomiting or diarrhea), CT again negative so sent home. Last night, he developed severe pain with associated dry heaves and nausea as well as diarrhea, which were new from prior episodes of symptoms. He denies overt hematochezia although stools were reddish in color so he is unsure if bloody. He came to [facility] for eval overnight - imaging here showed possible partial SBO so referred for admission. NGT placed in ED for decompression - pt reports improvement in pain after NGT placed. Main complaint at present is sore throat related to the tube. Prior to 08/18, pt denies any similar symptoms. No recent change in bowel habits, appetite, or weight loss. He denies prior abdominal surgeries, no prior SBO. He denies fevers, chills, chest pain, palpitations, SOB, SONI, Dizziness. He has a history of BP - on metoprolol and losartan but has not taken since yesterday. Admission Exam Per Admitting Provider Physical Exam Constitutional: well developed and well nourished; no acute distress Eyes: + anicteric sclerae ENMT: NGT in place with reddish drainage Neck: trachea midline Respiratory: no respiratory distress and no labored breathing Auscultation: lungs clear to auscultation bilaterally; no rales, no rhonchi and no wheezes Cardiovascular: Rate/Rhythm: regular rate and regular rhythm Vessels: radial pulses present Extremities: no pedal edema Gastrointestinal (Abdomen): Inspection/Auscultation: + hypoactive bowel sounds; abdomen not distended Percussion/Palpation: + hernia (umbilical); abdomen nontender Musculoskeletal: Head/Neck/Chest: normocephalic, head atraumatic and neck supple Skin: no jaundice Neurologic: moves all extremities; no focal motor deficits and not confused Psychiatric: A+Ox3, euthymic affect Principal Diagnosis Partial small bowel obstruction Hypertension Discharge Data Allergies Allergy/AdvReac Type Severity Reaction Status Date / Time amoxicillin Allergy Rash Verified 09/01/22 09:13 Penicillins Allergy hives Verified 09/01/22 09:13 Consultations 09/01/22 06:36 ED Decision to Admit Stat 09/01/22 09:36 Consult General Surgery Routine Procedures Performed Laboratory Results WBC 9.69 K/ul (4.8-10.8) 09/02/22 07:46 RBC 4.82 M/uL (4.70-6.10) 09/02/22 07:46 Hgb 15.3 g/dl (14.0-18.0) 09/02/22 07:46 Hct 42.6 % (42.0-52.0) 09/02/22 07:46 MCV 88.4 fL (80.0-100.0) 09/02/22 07:46 MCH 31.7 pg (25.0-34.0) 09/02/22 07:46 MCHC 35.9 g/dL (32.0-36.0) 09/02/22 07:46 RDW Std Deviation 38.4 fL (36.4-46.3) 09/02/22 07:46 RDW Coeff of Bal 11.9 % (11.5-14.5) 09/02/22 07:46 Plt Count 179 K/uL (130-400) 09/02/22 07:46 MPV 11.3 fL (9.4-12.4) 09/02/22 07:46 Immature Gran % (Auto) 1.0 % 09/01/22 04:50 Neut % (Auto) 78.0 % 09/01/22 04:50 Lymph % (Auto) 11.4 % 09/01/22 04:50 [place] % (Auto) 4.9 % 09/01/22 04:50 Eos % (Auto) 4.4 % 09/01/22 04:50 Baso % (Auto) 0.3 % 09/01/22 04:50 Neut # (Auto) 8.83 K/uL (1.40-6.50) H 09/01/22 04:50 Lymph # (Auto) 1.29 K/uL (1.2-3.4) 09/01/22 04:50 [place] # (Auto) 0.56 K/uL (0.11-0.59) 09/01/22 04:50 Eos # (Auto) 0.50 K/uL (0-0.50) 09/01/22 04:50 Baso # (Auto) 0.03 K/uL (0-0.2) 09/01/22 04:50 Immature Gran # (Auto) 0.11 K/uL (0.01-0.20) 09/01/22 04:50 Sodium 141 mmol/L (136-145) 09/02/22 07:46 Potassium 3.5 mmol/L (3.5-5.1) 09/02/22 07:46 Chloride 106 mmol/L (98-107) 09/02/22 07:46 Carbon Dioxide 27 mmol/L (21-32) 09/02/22 07:46 Anion Gap 8 (3-11) 09/02/22 07:46 BUN 18 mg/dl (6-23) 09/02/22 07:46 Creatinine 1.08 mg/dl (0.6-1.4) 09/02/22 07:46 Est Cr Clr Drug Dosing 111.9 ml/min 09/02/22 07:46 Est GFR ( Amer) 93.6 ml/min 09/02/22 07:46 Est GFR (Non-Af Amer) 80.7 ml/min 09/02/22 07:46 BUN/Creatinine Ratio 16.7 (10-20) 09/02/22 07:46 Glucose 115 mg/dl (70-99(Fasting)) H 09/02/22 07:46 Estimat Average Glucose 105 mg/dl 09/02/22 07:46 Hemoglobin A1c 5.3 % (4.5-5.6) 09/02/22 07:46 Lactate 2.5 mmol/L (0.4-2.0) H* 09/01/22 14:53 Calcium 8.2 mg/dl (8.5-10.1) L 09/02/22 07:46 Magnesium 1.8 mg/dl (1.7-2.4) 09/02/22 07:46 Total Bilirubin 0.9 mg/dl (0.2-1.0) 09/01/22 04:50 AST 23 U/L (13-39) 09/01/22 04:50 ALT 30 U/L (7-52) 09/01/22 04:50 Alkaline Phosphatase 56 U/L (34-104) 09/01/22 04:50 Total Protein 7.1 gm/dl (6.0-8.3) 09/01/22 04:50 Albumin 4.5 gm/dl (3.4-5.0) 09/01/22 04:50 Globulin 2.6 gm/dl (2.5-4.0) 09/01/22 04:50 Albumin/Globulin Ratio 1.7 (0.9-2) 09/01/22 04:50 Lipase 33 U/L (11-82) 09/01/22 04:50 Urine Color Yellow 09/01/22 06:23 Urine Appearance Clear (Clear) 09/01/22 06:23 Urine pH 6.5 (4.5-7.5) 09/01/22 06:23 Ur Specific Gilbert > 1.045 (1.000-1.030) H 09/01/22 06:23 Urine Protein Negative (Negative) 09/01/22 06:23 Urine Glucose (UA) Negative (Negative) 09/01/22 06:23 Urine Ketones Negative (Negative) 09/01/22 06:23 Urine Blood Negative (Negative) 09/01/22 06:23 Urine Nitrite Negative (Negative) 09/01/22 06:23 Urine Bilirubin Negative (Negative) 09/01/22 06:23 Urine Urobilinogen Negative (Negative) 09/01/22 06:23 Ur Leukocyte Esterase Negative (Negative) 09/01/22 06:23 Stl C. cayetanensis PCR Not Detected (NotDetected) 09/01/22 Unknown Stool Rotavirus A PCR Not Detected (NotDetected) 09/01/22 Unknown Stl Adenov F 40/41 PCR Not Detected (NotDetected) 09/01/22 Unknown Stool Astrovirus (PCR) Not Detected (NotDetected) 09/01/22 Unknown Stool Campylobacter PCR Not Detected (NotDetected) 09/01/22 Unknown Stool Cryptosporidium PCR Not Detected (NotDetected) 09/01/22 Unknown Stl E.coli Shiga Tox PCR Not Detected (NotDetected) 09/01/22 Unknown Stl Enterotoxigenic E PCR Not Detected (NotDetected) 09/01/22 Unknown Stool EPEC (PCR) Not Detected (NotDetected) 09/01/22 Unknown Stool EAEC (PCR) Not Detected (NotDetected) 09/01/22 Unknown Stl E. histolytica PCR Not Detected (NotDetected) 09/01/22 Unknown Stool Giardia Lamblia PCR Not Detected (NotDetected) 09/01/22 Unknown Stool Salmonella PCR Not Detected (NotDetected) 09/01/22 Unknown Stool Sapovirus (PCR) Not Detected (NotDetected) 09/01/22 Unknown Stl P. shigelloides PCR Not Detected (NotDetected) 09/01/22 Unknown Stl Shigella/EIEC PCR Not Detected (NotDetected) 09/01/[address]enterocolitica PCR Not Detected (NotDetected) 09/01/22 Unknown Stool Vibrio (PCR) Not Detected (NotDetected) 09/01/22 Unknown Stl Vibrio cholerae PCR Not Detected (NotDetected) 09/01/22 Unknown Stl Norovirus GI/GII PCR Not Detected (NotDetected) 09/01/22 Unknown SARS-CoV-2, RNA, NAAT NEGATIVE (NEGATIVE) 09/01/22 06:36 Impressions Abdomen/Pelvis CT 09/01/22 05:06 Exam(s): CT ABDOMEN + PELVIS With Contrast IV Amt: 85 ML OPTIRAY 350 EXAM: CT Abdomen and Pelvis With Intravenous Contrast CLINICAL HISTORY: Reason for exam: severe periumbilical pain. TECHNIQUE: Axial computed tomography images of the abdomen and pelvis with intravenous contrast. CTDI is 27.08 mGy and DLP is 1641.32 mGy-cm. Automated exposure control was utilized for the study. A dose lowering technique was utilized adhering to the principles of ALARA. CONTRAST: Patient received 85 ML OPTIRAY 350 of IV contrast COMPARISON: No relevant prior studies available. FINDINGS: Lung bases: Unremarkable. No mass. No consolidation. ABDOMEN: Liver: Hepatic steatosis. Gallbladder and bile ducts: Unremarkable. No calcified stones. No ductal dilation. Pancreas: Unremarkable. No mass. No ductal dilation. Spleen: Unremarkable. No splenomegaly. Adrenals: Unremarkable. No mass. Kidneys and ureters: Unremarkable. No solid mass. No hydronephrosis. Stomach and bowel: Mildly prominent fluid-filled small bowel loops. These generally measure less than 3 cm in diameter. There is no clear one transition point. No obstruction. No mucosal thickening. PELVIS: Appendix: No findings to suggest acute appendicitis. Bladder: Unremarkable. No mass. Reproductive: Unremarkable as visualized. ABDOMEN and PELVIS: Intraperitoneal space: Unremarkable. No free air. No significant fluid collection. Bones/joints: No acute fracture. No dislocation. Soft tissues: Unremarkable. Vasculature: Unremarkable. No abdominal aortic aneurysm. Lymph nodes: Unremarkable. No enlarged lymph nodes. IMPRESSION: Mildly prominent fluid-filled small bowel loops. These generally measure less than 3 cm in diameter. There is no clear one transition point. This may represent early or partial small bowel obstruction. The appendix is normal. Hepatic steatosis. Electronically signed by: Mk Dalal MD 09/01/22 06:04 AM KUB X-Ray 09/01/22 17:28 KUB HISTORY: NG tube adjustment COMPARISON: KUB 09/01/2022. FINDINGS: The bowel gas pattern is unremarkable. There are no dilated loops of small bowel to suggest an obstruction. No renal calculi. No ureteral calculi. No pneumoperitoneum or pneumatosis. Nasogastric tube terminates in the mid to distal stomach. IMPRESSION: The nasogastric tube terminates in the stomach. ACT 112: Negative or not required by law. Electronically signed by: Ata Nunez M.D. 09/01/2022 7:02 PM Extremity Venous Study 09/01/22 22:33 Exam(s): US VENOUS LEFT UPPER EXTREMITY EXAM: US Duplex Left Upper Extremity Veins CLINICAL HISTORY: Reason for exam: swelling. TECHNIQUE: Real-time duplex ultrasound scan of the left upper extremity veins integrating B-mode two-dimensional vascular structure, Doppler spectral analysis, color flow Doppler imaging and compression. COMPARISON: No relevant prior studies available. FINDINGS: Deep veins: Unremarkable. No DVT in the internal jugular, subclavian, axillary, or brachial veins. The veins demonstrate normal color flow, are normally compressible, with normal phasic flow and/or augmentation response. Superficial veins: Unremarkable. No thrombus in the visualized basilic and cephalic veins. Soft tissues: No acute findings. IMPRESSION: Normal left upper extremity duplex venous ultrasound. Electronically signed by: Faisal Brown MD 09/01/22 23:54 PM Small Bowel X-Ray 09/02/22 06:43 FL small bowel follow through CLINICAL HISTORY: Small bowel obstruction. Abnormal CT. Follow-up. COMPARISON STUDY: Abdomen and pelvis CT 09/01/2022. FINDINGS: 5 overhead images of the abdomen were obtained. No fluoroscopic spot images were obtained. A total of 600 cc of a one-to-one mixture of Optiray 350 and water were injected through the indwelling nasogastric tube. [employer] images demonstrate the nasogastric tube at the mid stomach. No dilated loops of small bowel identified. The small bowel is normal and course and caliber. The terminal ileum appeared normally distensible. No evidence for small bowel obstruction. Contrast reached the colon by 30 minutes. IMPRESSION: No evidence for a small bowel obstruction. ACT 112: Negative or not required by law. Electronically signed by: Ata Nunez M.D. 09/02/2022 9:21 AM Ordered Studies 09/01/22 05:06 CT Abd and Pelvis [CT abd pelvis IV con only] Stat 09/01/22 22:33 US venous doppler UE LT Urgent 09/02/22 06:43 [place] small bowel follow through Routine Hospital Course (1) Partial small bowel obstruction: Patient is a 47 yr male with a PMH of hypertension who presents with two weeks of episodic abdominal pain, most recent episode with associated dry heaves and diarrhea. Imaging in the ED today concerning for partial SBO but no transition point. No prior bowel obstructions, no prior abdominal surgery Partial small bowel obstruction --CT ABD:Mildly prominent fluid-filled small bowel loops. These generally measure less than 3 cm in diameter. There is no clear one transition point.This may represent early or partial small bowel obstruction.The appendix is normal. Hepatic steatosis. --Small Bowel follow through:No evidence for a small bowel obstruction. --Stool Studies:Negative -- NG tube discontinued Had bowel movement Advance diet as tolerated Appreciate surgery input Abdominal pain resolved Plan to discharge home if tolerates low fiber diet Advised to follow-up with GI as Outpatient (2) Essential hypertension: BP elevated Restart losartan, Metoprolol Hydralazine PRN Plan Code Status: Full Code DVT Prophylaxis: SCDs Encourage to ambulate Total Time Total Time Spent Total Time Spent (In Minutes): 54 minutes Discharge Plan Discharge Items Patient Disposition: Home - Self-Care Reason For Visit: SBO Discharge Diagnosis: Partial small bowel obstruction Hypertension Activity: Per Instructions section Exercise/Sports: Gradually increase as tolerated Non-emergency contact: Primary Care Provider and Bundle Collector Call non-emergency contact if: you have any medication questions, your symptoms worsen, your pain is concerning for you and you have a fever Follow-up/Referrals: Alla Barron DO [Primary Care Provider] - (Date & Time 09/09/2022 7:20 AM Provider Nereyda Kim PA-C Department [facility] ) Diet: Low Fiber Addtl Attending Provider Instructions: Follow-up with your primary care physician Dr. Barron on 09/09/2022 7:20 AM Follow-up with your seismograph operator helper as recommended by your surgeon for further evaluation of abdominal pain Seek immediate medical attention if your symptoms reoccur or worsen Please take all medications as instructed on discharge list below. Please call if you have any questions or problems. You can reach a [facility] hospitalist on duty at [facility] 24 hours a day by calling [phone] Pending Studies at Discharge: No Stand-Alone Forms: My [facility], Smoking Cessation Medications and DC Order Prescriptions: Continued losartan 100 mg tablet 100 mg PO DAILY metoprolol tartrate 25 mg tablet 25 mg PO BID Discharge Orders: Discharge Order (Routine); Ordered 09/02/22 Ordered By: Farrukh De La Torre/Other Patient Handouts: Low-Fiber Diet Admission Data Admit Date/Time: 09/01/22 08:01 Attending Provider: Farrukh Robles Admit Provider: Farrukh Robles Primary Care Provider: Alla Barron Other Providers: Danita Woodruff ; Brett Alexander ; Art Koenig ; Yi Reyna ; Denise Mobley ; Aj Hayward ; Subhash Adams ; Jailene Tse ; Veronica Farr ; Mk Llamas Jr ; Hector Carlin ; Vimal Whitten ; Catherine Cabrera
== END 2022-09-02 14:57 | disposition home or self-care (01) | DRG 390 ==
LOC: ED 04:35 → 2N 08:01 → 2S 17:18